=== PATIENT | female | born 1995 | race Caucasian/White ===

== ENCOUNTER 2024-08-04 15:49 | Emergency (ER) | payer BC, SELFPAY ==
[2024-08-04 16:02] VITALS: BP 128/90; PULSE 89; RESP 18; TEMP 36.4; O2SAT 100; BMI 25.6
--- NOTE | 2024-08-04 16:30 | ED_ITS ---
HPI - General Adult General Chief complaint: Breast Symptoms Stated complaint: fluid building up post surgery Time Seen by Provider: 08/04/24 15:52 History of Present Illness HPI narrative: Patient is a 29-year-old woman who comes in today with seroma in her breasts bilaterally. She had breast cancer with bilateral mastectomy in October of 2023. Since that time she has had recurrent seromas and now has breast expanders in place. The breast expanders have been increased several times most recently within last week. The seromas have increased in size primarily on the left. She has no signs of infection such as fevers chills redness or pain. But is concerned due to the increasing size of the seroma. In addition the patient has no signs of cough sputum production systemic infection abdominal pain nausea vomiting or diarrhea. Related Data Home Medications ?Medication ?Instructions ?Recorded ?Confirmed albuterol sulfate 90 mcg/actuation inhalation 07/04/23 07/04/23 aerosol inhaler bupropion HCl 150 mg 24 hr tablet, 300 mg PO QAM 07/04/23 08/04/24 extended release bupropion HCl 75 mg tablet 75 mg PO QAM 07/04/23 07/04/23 dexamethasone 4 mg tablet mg PO 07/04/23 07/04/23 diazepam 5 mg tablet 5 mg PO BID PRN 07/04/23 08/04/24 eletriptan 40 mg tablet 40 mg PO 07/04/23 07/04/23 montelukast 10 mg tablet 10 mg PO DAILY 07/04/23 08/04/24 ondansetron 4 mg disintegrating 4 mg PO Q8H PRN 07/04/23 08/04/24 tablet ondansetron HCl 8 mg tablet 8 mg PO 3XD 07/04/23 07/04/23 prochlorperazine maleate 10 mg mg PO 07/04/23 07/04/23 tablet sertraline 100 mg tablet mg PO 07/04/23 07/04/23 abemaciclib 100 mg tablet PO 08/04/24 (Verzenio) anastrozole 1 mg tablet 1 mg PO DAILY 08/04/24 08/04/24 semaglutide 2 mg/dose (8 mg/3 mL) 2 mg subcut QWEEK 08/04/24 08/04/24 subcutaneous pen injector Allergies Allergy/AdvReac Type Severity Reaction Status Date / Time amoxicillin Allergy Intermediate Joint Pain Verified 07/04/23 18:13 Penicillins Allergy Intermediate Joint Pain Verified 07/04/23 18:13 Review of Systems Status of ROS: Reports: 10 or more systems reviewed and unremarkable except as noted in History and below [facility] Medical History Breast cancer ?C50.919 - Malignant neoplasm of unspecified site of unspecified female breast (ICD-10) Bronchitis ?J40 - Bronchitis, not specified as acute or chronic (ICD-10) Cough ?R05.9 - Cough, unspecified (ICD-10) Exam Narrative: Exam Narrative: EXAM GENERAL: Patient appears comfortable and well. EYES: No scleral icterus. LYMPH: No supraclavicular or cervical lymphadenopathy. SKIN: Visible skin seen during exam normal or with benign process only. EXT: No dependent lower extremity pedal edema. HEART: Regular rate and rhythm with no murmurs, rubs, or gallops. LUNGS: Clear to auscultation bilaterally with no crackles or wheezes. ABD: Soft, non tender, non distended. PSYCH: Good eye contact, speech is not pressured. Examination of the breasts show seroma bilaterally no signs of systemic infection no pain to palpation. Exam done with a female forestry fire aid present. Const: Vital Signs, click to edit/add: Vital Signs - 24 hr 08/04/24 16:02 Temperature 97.5 F L Pulse Rate [Pulse Oximeter] 89 Respiratory Rate 18 Blood Pressure [Ri ght Upper Arm] 128/90 H Pulse Oximetry 100 Oxygen Delivery Me thod Room Air Course Vital Signs Vital signs: Initial Vital Signs Temperature 97.5 F L 08/04/24 16:02 Temperature Source Temporal Artery Scan 08/04/24 16:02 Pulse Rate 89 08/04/24 16:02 Respiratory Rate 18 08/04/24 16:02 Blood Pressure 128/90 H 08/04/24 16:02 Blood Pressure Mean 102 08/04/24 16:02 Pulse Oximetry 100 08/04/24 16:02 Oxygen Delivery Method Room Air 08/04/24 16:02 Vital Signs Temperature 97.5 F L 08/04/24 16:02 Pulse Rate 89 08/04/24 16:02 Respiratory Rate 18 08/04/24 16:02 Blood Pressure 128/90 H 12/14/24 16:02 Pulse Oximetry 100 08/04/24 16:02 Oxygen Delivery Method Room Air 08/04/24 16:02 Temperature 97.5 F L 08/04/24 16:02 Pulse Rate 89 08/04/24 16:02 Respiratory Rate 18 08/04/24 16:02 Blood Pressure 128/90 H 08/04/24 16:02 Pulse Oximetry 100 08/04/24 16:02 Oxygen Delivery Method Room Air 08/04/24 16:02 Medical Decision Making [facility] Narrative Medical decision making narrative: Patient is a 29-year-old woman who presents with bilateral breast seromas following mastectomy with tissue expanders. I did examine the patient and reviewed her record. I a forestry fire aid was present during my exam. I see no signs of systemic infection or localized cellulitis or infection. At this time I did review the case with General surgery they did recommend tissue compression with Pranay wraps. I explained that she can keep her outpatient follow-up with her plastic surgeon and present to a facility where that surgeon has privileges if symptoms worsen. Certainly wear here for any emergencies but no intervention other than compression recommended. Discharge Plan Discharge Clinical Impression: Seroma Patient Disposition: Home, Self-Care Condition: Stable Instructions: Seroma (DC) Additional Instructions: Tissue binding as directed Continue current medications Monitor symptoms Follow-up with your surgeon this week. Activity Level: No Restrictions Discharge Diet: Regular Prescriptions: No Action dexamethasone 4 mg tablet PO prochlorperazine maleate 10 mg tablet PO ondansetron HCl 8 mg tablet 8 mg PO 3XD bupropion HCl 150 mg tablet extended release 24 hr 300 mg PO QAM montelukast 10 mg tablet 10 mg PO DAILY diazepam 5 mg tablet 5 mg PO BID PRN eletriptan 40 mg tablet 40 mg PO ondansetron 4 mg tablet,disintegrating 4 mg PO Q8H PRN sertraline 100 mg tablet PO albuterol sulfate 90 mcg/actuation HFA aerosol inhaler inhalation bupropion HCl 75 mg tablet 75 mg PO QAM anastrozole 1 mg tablet 1 mg PO DAILY Verzenio 100 mg tablet PO semaglutide 2 mg/dose (8 mg/3 mL) pen injector 2 mg subcut QWEEK Stand Alone Forms: [facility] Instructions
== END 2024-08-04 16:46 | disposition home or self-care (01) ==
LOC: ED 16:39
PROVIDERS: Emergency Provider Internal Medicine
DX: N64.89 Other specified disorders of breast (principal)
CPT/HCPCS: 99282; 99283